=== PATIENT | female | born 2000 | race Caucasian/White ===

== ENCOUNTER 2022-02-08 22:48 | Emergency (ER) | payer OTHER ==
[2022-02-08] MEDS ORDERED: Boostrix 0.5 ML (Tdap) VIAL (>/=7 yrs of age) ONE (23:19)
== END 2022-02-08 23:27 | disposition home or self-care (01) ==
LOC: BURERS 22:48
DX: S61.211A Laceration without foreign body of left index finger without damage to nail, initial encounter (principal); F17.290 Nicotine dependence, other tobacco product, uncomplicated; Z23 Encounter for immunization; W26.8XXA Contact with other sharp object(s), not elsewhere classified, initial encounter
CPT/HCPCS: 12001; 90471; 90715

== ENCOUNTER 2022-03-04 12:21 | Emergency (ER) | payer OTHER | END 2022-03-04 13:09 | disposition home or self-care (01) | LOC: BURERS 12:21 | DX: Z00.00 Encounter for general adult medical examination without abnormal findings (principal); F17.290 Nicotine dependence, other tobacco product, uncomplicated | CPT/HCPCS: 99281 ==

== ENCOUNTER 2023-02-25 18:17 | Emergency (ER) | payer OTHER ==
[2023-02-25] MEDS ORDERED: Ibuprofen 200 MG TAB ONE ×2 (18:45→18:47)
== END 2023-02-25 21:01 | disposition home or self-care (01) ==
LOC: BURERS 18:17
DX: S46.811A Strain of other muscles, fascia and tendons at shoulder and upper arm level, right arm, initial encounter (principal); V89.2XXA Person injured in unspecified motor-vehicle accident, traffic, initial encounter
CPT/HCPCS: 99283

== ENCOUNTER 2023-11-02 17:51 | Emergency (ER) | payer MEDICAID, SELFPAY ==
[2023-11-02 18:09] LABS: #Basophils 0.1 thou/uL (0.0-0.2); #Eosinphils 0.1 thou/uL (0.0-0.7); #Lymphocytes 1.9 thou/uL (1.20-3.40); #Monocytes 0.6 thou/uL (0.11-0.59); #Neutrophils 5.6 thou/uL (1.40-6.50); %Basophils 0.6 % (0.0-1.0); %Eosinophils 1.7 % (0.0-10.0); %Lymphocytes 22.9 % (21.0-51.0); %Monocytes 7.1 % (0.0-10.0); %Neutrophils 67.7 % (42.0-75.0); Hematocrit 41.8 % (36.0-47.0); Hemoglobin 14.3 g/dL (12.0-16.0); Mean Corpuscular HGB CONC 34.2 g/dL (32.0-36.0); Mean Corpuscular Hemoglobin 29.9 pg (27.0-31.0); Mean Corpuscular Volume 87.5 fl (78.0-98.0); Mean Platelet Volume 6.3 fL (7.4-10.4); Platelet Count 359 10x3/uL (130-400); Red Blood Cell (RBC) Count 4.78 mill/uL (4.20-5.40); White Blood Cell (WBC) Count 8.2 10x3/uL (4.8-10.8)
[2023-11-02 18:16] LABS: Bilirubin Negative (Negative); Blood, Urine Moderate (Negative); Glucose, Urine (Dipstick) Negative (Negative); Ketone, Urine Negative (Negative); Leukocyte Negative (Negative); Nitrite Negative (Negative); Protein, Urine (Dipstick) Negative (Neg-Trace); pH, Urine 5.5 (5.0-9.0)
[2023-11-02 18:17] LABS: Clarity Hazy (Clear); Specific Gravity, Urine 1.028 (1.002-1.036)
[2023-11-02 18:25] LABS: CAUTI Indications for Culture Dysuria,urgency,freq; WBC/HPF None Seen HPF (0-3)
[2023-11-02 18:26] LABS: Bacteria/HPF 1+ HPF (None Seen); Mucous/LPF 3+ LPF (<2+)
[2023-11-02 18:26] LABS: BHCG - Serum Negative (NEGATIVE); Pregs Control Background? CLEAR/WHITE (CLR/WHITE); Pregs Control Bar Appear? YES (CONTROL BAR)
[2023-11-02 18:28] LABS: Urine Culture Reflex No No
[2023-11-02 18:29] LABS: ALT (SGPT) 25 U/L (8-55); AST (SGOT) 17 U/L (5-34); Albumin 4.4 g/dL (3.5-5.0); Alkaline Phosphatase 49 U/L (40-110); Anion Gap 13 mmol/L (10-20); BUN (Urea Nitrogen) 16 mg/dL (7.0-18.7); Bilirubin, Total 0.6 mg/dL (0.2-1.2); Calc. Creatinine Clearance 0 mL/min (70-130); Calcium 10.1 mg/dL (7.8-10.44); Carbon Dioxide 24 mmol/L (22-29); Chloride 106 mmol/L (98-107); Estimated GFR 85; Globulin 3.7 g/dL (2.4-3.5); Glucose 103 mg/dL (70-105); Potassium 4.1 mmol/L (3.5-5.1); Protein, Total 8.1 g/dL (6.0-8.3); Sodium 139 mmol/L (136-145)
== END 2023-11-02 18:42 | disposition home or self-care (01) ==
LOC: BURERS 17:51
DX: B34.9 Viral infection, unspecified (principal); R11.2 Nausea with vomiting, unspecified; Z55.6 Problems related to health literacy
CPT/HCPCS: 36415; 80053; 81001; 84703; 85025; 99284